=== PATIENT | female | born 1990 | race Asian ===

== ENCOUNTER 2019-01-24 14:36 | Emergency (ER) | payer SELFPAY ==
[~2019-01-24] VITALS: Ht 170.2 cm; Wt 52.3 kg
[2019-01-24] MEDS ORDERED: IBUP200C5 PO (14:44)
[2019-01-24 16:08] LABS: APPEARANCE,URINE CLOUDY (CLEAR); GLUCOSE, URINE (UA) NEGATIVE (NEGATIVE); KETONES,URINE TRACE mg/dL (NEGATIVE); LEUKOCYTE ESTERASE ,URINE TRACE (NEGATIVE); NITRATE,URINE NEGATIVE (NEGATIVE); OCCULT BLOOD,URINE LARGE (NEGATIVE); PROTEIN,URINE POS 1+ (NEGATIVE); UROBILINOGEN,URINE 0.2 mg/dL (<=1.0)
[2019-01-24 16:14] LABS: BILIRUBIN,URINE PRELIM. POSITIVE (NEGATIVE)
[2019-01-24 16:27] LABS: RBC,URINE 26-50 /HPF (0-2)
[2019-01-24 16:28] LABS: WBC,URINE 0-2 /HPF (0-5)
[2019-01-24 16:30] LABS: BACTERIA,URINE Moderate /HPF (None Seen); MUCUS,URINE Few LPF (None Seen); SQUAMOUS EPITHELIAL CELL,UR Few /LPF (None Seen)
[2019-01-24] MEDS ORDERED: ACETAMINOPHEN 325 MG TABLET PO ONE (16:45)
[2019-01-24 16:46] VITALS: BP 107/69
== END 2019-01-24 16:52 | disposition home or self-care (01) ==
LOC: EDBD 14:43 → EMS 14:43
DX: B34.9 Viral infection, unspecified (principal)
CPT/HCPCS: 87086